=== PATIENT | female | born 1970 | race Two or more races ===

== ENCOUNTER → 2021-03-09 | Outpatient (CLI) | payer SELFPAY ==
[2021-03-12 21:12] LABS: HPV APTIMA, High Risk Negative (Negative)
== END | disposition home or self-care (01) ==
LOC: LABSPEC 13:37
PROVIDERS: Visit Provider Student in an Organized Health Care Education/Training Program
DX: Z12.4 Encounter for screening for malignant neoplasm of cervix (principal)
CPT/HCPCS: 87624; 88175; G0145